=== PATIENT | male | born 1965 | race Caucasian/White ===

== ENCOUNTER 2019-12-22 13:35 | Outpatient (CLI) | payer OTHER ==
--- NOTE | 2019-12-22 15:33 | RAD ---
CERVICAL SPINE: 12/22/19 Four views. HISTORY: Cervical spine fracture. COMPARISON: Comparison made to CT cervical spine 11/14/19 which described a fracture involving the transverse proce ss on the right at C7. FINDINGS: Degenerative changes of the cervical spine again noted with degenerative changes most pronounced at t he C5-6 an C6-7 levels, unchanged from the CT scan. Slight anterolisthesis at C4-5 is stable. The fra cture involving the right transverse process at C7 is not appreciated on this exam. Alignment is unch anged. IMPRESSION: Stable degenerative changes of the cervical spine. The C7 transverse process fracture is not apprecia cam on plain film. POS: AH
== END 2019-12-22 13:36 | disposition home or self-care (01) ==
LOC: BICRAD 13:35
PROVIDERS: ATTEND Neurological Surgery
DX: S12.600D Unspecified displaced fracture of seventh cervical vertebra, subsequent encounter for fracture with routine healing (principal); M47.812 Spondylosis without myelopathy or radiculopathy, cervical region
CPT/HCPCS: 72040

== ENCOUNTER 2021-03-05 16:25 | Emergency (ER) | payer OTHER, SELFPAY ==
[2021-03-05] MEDS ORDERED: Morphine 4 MG/ML VIAL ONE (16:51)
[2021-03-05] MEDS ORDERED: Ketorolac Tromethamine 30 MG/ML VIAL ONE (16:51)
[2021-03-05] MEDS ORDERED: Boostrix 0.5 ML (Tdap) VIAL ONE (16:51)
== END 2021-03-05 17:29 | disposition home or self-care (01) ==
LOC: ERS 16:25
DX: T23.201A Burn of second degree of right hand, unspecified site, initial encounter (principal); X04.XXXA Exposure to ignition of highly flammable material, initial encounter
CPT/HCPCS: 90471; 90715; 96374; 96375; J1885; J2270